=== PATIENT | male | born 1965 | race Native Hawaiian/Other Pacific Islander ===

== ENCOUNTER 2019-04-08 07:18 | Outpatient (CLI) | payer OTHER ==
[2019-04-08 07:32] LABS: PLATELET COUNT 261 K/uL (142-355)
[2019-04-08 08:28] LABS: POTASSIUM 4.6 mmol/L (3.6-5.2)
== END 2019-04-08 22:44 | disposition home or self-care (01) ==
LOC: LABW 07:18
PROVIDERS: Physician Assistant
DX: Z00.00 Encounter for general adult medical examination without abnormal findings (principal); I10 Essential (primary) hypertension; K21.9 Gastro-esophageal reflux disease without esophagitis; R35.1 Nocturia
CPT/HCPCS: 36415; 80053; 80061; 84154; 84443; 85027

== ENCOUNTER 2022-12-16 22:01 | Emergency (ER) | payer OTHER ==
[~2022-12-16] VITALS: Ht 182.9 cm; Wt 90.7 kg
[2022-12-16 22:55] VITALS: TEMP 98.7
[2022-12-17 00:19] LABS: PLATELET COUNT 266 K/uL (142-355)
[2022-12-17 00:28] LABS: POTASSIUM 3.8 mmol/L (3.6-5.2)
[2022-12-17 01:24] VITALS: BP 168/94
== END 2022-12-17 01:24 | disposition home or self-care (01) ==
LOC: ED 22:01
PROVIDERS: Family Medicine
DX: M41.84 Other forms of scoliosis, thoracic region (principal); M62.830 Muscle spasm of back; S29.012A Strain of muscle and tendon of back wall of thorax, initial encounter; I10 Essential (primary) hypertension; X58.XXXA Exposure to other specified factors, initial encounter; Y92.89 Other specified places as the place of occurrence of the external cause
CPT/HCPCS: 36415; 80053; 81002; 82550; 85027; 96372; 99283; J1885; J2930